=== PATIENT | female | born 1945 | race Caucasian/White ===

== ENCOUNTER 2023-10-05 09:23 | Inpatient (IN) ==
--- NOTE | 2023-09-12 12:44 | PAT Medication Instructions ---
Medication Instructions Date of Service September 12, 2023 Home Medications Medication Instructions Recorded celecoxib 200 mg capsule (Celebrex) 200 mg PO BID #28 caps 08/08/23 oxycodone 5 mg tablet 5 mg PO Q6H PRN pain #20 tabs 08/14/23 tramadol 50 mg tablet 50 mg PO Q6H PRN pain, moderate 08/14/23 #20 tabs atorvastatin 20 mg tablet 20 mg PO HS azelastine 137 mcg (0.1 %) nasal spray aerosol 1 spray intranasal UD PRN calcium 1 tab PO HS cetirizine 10 mg tablet (Zyrtec) 10 mg PO QAM escitalopram oxalate 20 mg tablet 20 mg PO QPM eszopiclone 2 mg tablet 1 - 2 mg PO HS PRN gabapentin 300 mg capsule 300 - 600 mg PO USEASDIRECTD glimepiride 4 mg tablet 4 mg PO UD PRN levothyroxine 88 mcg tablet 88 mcg PO QAM losartan 50 mg tablet 50 mg PO HS montelukast 10 mg tablet 10 mg PO UD PRN pantoprazole 40 mg tablet,delayed release 40 mg PO Q2D semaglutide 0.25 mg or 0.5 mg (2 mg/3 mL) subcutaneous pen injector (Ozempic) 0.5 mg subcut Q7D Advil 1 tab PO DIRECTED PRN multivitamin 1 tab PO DAILY celecoxib 200 mg capsule (Celebrex) 200 mg PO BID oxycodone 5 mg tablet 5 mg PO Q6H PRN tramadol 50 mg tablet 50 mg PO Q6H PRN cholecalciferol (vitamin D3) 25 mcg (1,000 unit) chewable tablet (Vitamin D3) 25 mcg PO DAILY ferrous sulfate 325 mg (65 mg iron) tablet (Iron (ferrous sulfate)) 325 mg PO DAILY STOP 7 days before surgery semaglutide 0.25 mg or 0.5 mg (2 mg/3 mL) subcutaneous pen injector (Ozempic) 0.5 mg subcut Q7D Continue as directed pantoprazole 40 mg tablet,delayed release 40 mg PO Q2D gabapentin 300 mg capsule 300 - 600 mg PO USE DIRECTED azelastine 137 mcg (0.1 %) nasal spray aerosol 1 spray intranasal UD PRN(if needed) montelukast 10 mg tablet 10 mg PO UD PRN(if needed) ASK your surgeon for instructions Advil 1 tab PO DIRECTED PRN celecoxib 200 mg capsule (Celebrex) 200 mg PO BID DO NOT take the morning of surgery cetirizine 10 mg tablet (Zyrtec) 10 mg PO QAM glimepiride 4 mg tablet 4 mg PO UD PRN multivitamin 1 tab PO DAILY cholecalciferol (vitamin D3) 25 mcg (1,000 unit) chewable tablet (Vitamin D3) 25 mcg PO DAILY ferrous sulfate 325 mg (65 mg iron) tablet (Iron (ferrous sulfate)) 325 mg PO DAILY Take morning of surgery With a small sip of water, OTHERWISE NOTHING TO EAT OR DRINK AFTER MIDNIGHT: levothyroxine 88 mcg tablet 88 mcg PO QAM oxycodone 5 mg tablet 5 mg PO Q6H PRN(if needed) tramadol 50 mg tablet 50 mg PO Q6H PRN(if needed) Take evening before surgery atorvastatin 20 mg tablet 20 mg PO HS calcium 1 tab PO HS escitalopram oxalate 20 mg tablet 20 mg PO QPM eszopiclone 2 mg tablet 1 - 2 mg PO HS PRN(if needed) oxycodone 5 mg tablet 5 mg PO Q6H PRN(if needed) tramadol 50 mg tablet 50 mg PO Q6H PRN(if needed) losartan 50 mg tablet 50 mg PO HS Other Notes If you have any questions please call us at [phone] or [phone] or [phone] or [phone]
--- NOTE | 2023-09-19 13:52 | Anesthesiology Consultation ---
Date of Service September 19, 2023 Assessment & Plan (1) Encounter for pre-operative examination: Chart Review Chart Review: Acceptable Risk for Surgery and Patient seen in Pre Admission Testing - Check BSG AM DOS Patient with hx of lumbar fusion and spinal cord stimulator (spinal cord stimulator replaced 08/14/23)- would still like SAB if possible - Patient is NOT an OPJ candidate (currently SDA) - Ozempic instructions: Patient takes on (Wednesdays). Patient informed at PAT visit to stop 7 days prior to surgery- voiced understanding. Last dose of Ozempic scheduled 09/26/23- will be off Ozempic x 9 days by DOS on 10/05/23. Per PAT appt on 09/19/23, no recent illness/disease exposures, illness related symptoms, or recent illness/disease positive tests. Will leave to surgeon's discretion if preop Covid testing needed Spinal cord stimulator removal and replacement 08/14/23= done under [facility] with Grade 2 view with Dailey #2. ETT #7.0 - PCP visit (08/03/23): "Type of Surgery: Spinal cord stimulator removal and replacement.. Patient is low medical risk for the listed procedure.. They are able to walk up a flight of stairs, walk two blocks at a moderate pace, do heavy house work like vacuuming, and grocery shop. The patient's functional status is good (greater than 4 METS)." Teaching & Discussion Pre-Anesthesia Teaching/Discussion Notes: Instructed NPO after midnight before surgery,except medications with 15 cc of water. Medication instructions provided according to the PAT guidelines. History Surgery Operation Date: 10/05/23 11:05 Proposed Procedures p Left Revision Unicompartment Knee Arthroplasty to Left Total Knee Arthroplasty - Italo Armstrong, Height/Weight Height: 5 ft 3 in Weight: 79.8 kg Allergies Allergy/AdvReac Type Severity Reaction Status Date / Time grass pollen Allergy Headache Verified 09/07/23 15:07 mold Allergy Headache, Verified 09/07/23 15:07 runny nose, scratchy throat Sulfa (Sulfonamide Allergy Rash Verified 09/07/23 15:07 Antibiotics) tree and shrub pollen Allergy Headache, Verified 09/07/23 15:07 runny nose, scratchy throat Medications Home Medications Medication Instructions Recorded Confirmed Last Taken atorvastatin 20 mg tablet 20 mg PO HS 07/23/23 09/07/23 08/13/23 22:30 azelastine 137 mcg (0.1 %) nasal 1 spray intranasal UD PRN 07/23/23 09/07/23 08/13/23 22:30 spray aerosol Congestion calcium 1 tab PO HS 07/23/23 09/07/23 08/13/23 09:30 cetirizine 10 mg tablet (Zyrtec) 10 mg PO QAM 07/23/23 09/07/23 08/13/23 09:30 escitalopram oxalate 20 mg tablet 20 mg PO QPM 07/23/23 09/07/23 08/13/23 22:30 eszopiclone 2 mg tablet 1 - 2 mg PO HS PRN Sleep 07/23/23 09/07/23 08/13/23 22:30 gabapentin 300 mg capsule 300 - 600 mg PO USEASDIRECTD 07/23/23 09/07/23 08/13/23 22:30 glimepiride 4 mg tablet 4 mg PO UD PRN w/steroid 07/23/23 09/07/23 Unknown injections for knees levothyroxine 88 mcg tablet 88 mcg PO QAM 07/23/23 09/07/23 08/14/23 09:00 losartan 50 mg tablet 50 mg PO HS 07/23/23 09/07/23 08/13/23 22:30 montelukast 10 mg tablet 10 mg PO UD PRN Allergy Symptoms 07/23/23 09/07/23 08/13/23 14:00 pantoprazole 40 mg tablet,delayed 40 mg PO Q2D 07/23/23 09/07/23 08/12/23 09:00 release semaglutide 0.25 mg or 0.5 mg (2 0.5 mg subcut Q7D 07/23/23 09/07/23 08/03/23 mg/3 mL) subcutaneous pen injector (Ozempic) multivitamin 1 tab PO DAILY 08/01/23 09/07/23 08/13/23 09:30 celecoxib 200 mg capsule (Celebrex) 200 mg PO BID #28 caps 08/08/23 09/07/23 Unknown cholecalciferol (vitamin D3) 25 25 mcg PO DAILY 09/07/23 09/07/23 Unknown mcg (1,000 unit) chewable tablet (Vitamin D3) ferrous sulfate 325 mg (65 mg 325 mg PO DAILY 09/07/23 09/07/23 Unknown iron) tablet (Iron (ferrous sulfate)) Past Medical History Medical History Depression Diabetes mellitus, type 2 GERD (gastroesophageal reflux disease) Well controlled and stable HX: breast cancer Left breast, Dx 2010, s/p left breast lumpectomy/XRT/chemo (4 rounds) no limb restriction Hyperlipidemia Hypertension Hypothyroidism Insomnia Seasonal allergies Spinal cord neurostimulator device in situ Patient aware to bring remote DOS Exercise / Class Metabolic Activity III < 4 Walking/Shop/Light housework (no chest pain or SOB with flat surface ambulation - uses cane for ambulation ) Past Surgical History Surgical History History of esophagogastroduodenoscopy (EGD) History of lumbar fusion L4-5 History of lumpectomy of left breast History of partial knee replacement R/L ~2013 History of right hip replacement History of total left hip replacement with revision Hx of section Hx of cholecystectomy Hx of colonoscopy Hx of lumbosacral spine surgery 2012 Hx of surgical procedure #1 revision laminotomies T8, T9 and T10. #2 removal of spinal cord stimulator paddle and battery. #3 placement of [employer] 32-lead spinal cord stimulator paddle across T8 and T9 with rechargeable battery. Hx of tonsillectomy S/P placement of nerve stimulator x2; Advised to bring remote DOS [place] teeth extracted Past Anesthesia History No Hx of Anesthesia Complications and No Family Hx of Anesthesia Complications History of PONV No Hx of PONV and No Hx of Motion Sickness Social History Smoking Status: Never smoker Do You Dip or Chew Tobacco: No Hx Alcohol Use: Yes Alcohol type: wine alcohol intake frequency: a few times a month Hx Substance Use: No substance use type: does not use Review of Systems - Hx of blood transfusion - s/p surgery Apr 2022 Patient denies chest pain, shortness of breath, dyspnea on exertion, cough, wheezing, palpitations. No hx of seizures, stroke, ID, apnea/snoring. No hx of blood clots Physical Exam Vital Signs VITALS BP 125/72 P 83 TEMP 98.2 SP02 97% RESP 16 Constitutional no acute distress ENMT Mouth: no TMJ clicking Thyromental Distance: > or= 3.5 Finger Breadths (3.5) Mallampati Class: I Crowns to molars Neck neck extension not limited Respiratory normal respiratory effort; no respiratory distress Auscultation: lungs clear to auscultation bilaterally; no wheezes Cardiovascular Rate/Rhythm: regular rate and regular rhythm Heart Sounds: no murmur Vessels: no carotid bruit Musculoskeletal Spine: no pain with cervical ROM Extremities: extremities normal to inspection Psychiatric Orientation: alert Lab Results Anesthesia Preop Results Results Anesthesia Widget: WBC 10.52 K/ul (4.8-10.8) 09/19/23 Hgb 13.5 g/dl (12.0-16.0) 09/19/23 Hct 40.4 % (37.0-47.0) 09/19/23 Plt 209 K/uL (130-400) 09/19/23 Na 135 mmol/L (136-145) L 09/19/23 K 3.8 mmol/L (3.5-5.1) 09/19/23 Cl 104 mmol/L (98-107) 09/19/23 CO2 25 mmol/L (21-32) 09/19/23 BUN 23 mg/dl (6-23) 09/19/23 Creat 0.59 mg/dl (0.6-1.2) L 09/19/23 Glucose Level 92 mg/dl (70-99(Fasting)) 09/19/23 PT 10.9 Seconds (9.0-12.0) 09/19/23 PTT 27 Seconds (21-31) 09/19/23 INR 1.0 (0.9-1.1) 09/19/23 HA1c 6.5 % (4.5-5.6) H 09/19/23 Blood Type A Positive 09/19/23 Antibody Screen NEGATIVE 09/19/23 Testing Electrocardiogram Date: 08/01/23 Findings: + NSR @ (89bpm) Left axis deviation Low voltage QRS Possible inferior infarct (PCP reviewed preop EKG prior to spinal cord stimulator removal and replacement on 08/14/23- "PCP note/EKG response (08/07/23): "On my review of the EKG I do not see evidence of an inferior infarct and patient is asymptomatic.. I feel she is appropriate risk." Patient tolerated procedure without issues under [facility]) Chest X-Ray Date: 08/01/23 FINDINGS: Intracanalicular electrodes are incidentally noted. There are right upper quadrant surgical clips. Surgical clips project over the left chest. There is no pneumothorax or pleural effusion. No consolidation is present. There is no evidence for pulmonary edema. There is a small hiatal hernia. Cardiac size is within normal limits. IMPRESSION: No acute cardiopulmonary findings.
--- NOTE | 2023-10-03 12:44 | History & Physical Report ---
Date of Service October 03, 2023 Assessment & Plan (1) Osteoarthritis of left knee: We will proceed with a removal of the unicompartmental knee arthroplasty and conversion to standard knee replacement. Postoperatively she will be started on aspirin for DVT prophylaxis and kept overnight in the hospital for postop medical management. She plans to use energy physical therapy upon discharge. History of Present Illness Chief Complaint: Osteoarthritis of the left knee. Primary Care Provider: Lois Gee DO Nancy is a pleasant 78-year-old female who has been dealing with bilateral knee pain and left shoulder pain. She underwent partial knee replacements in [place] about 11 years ago. She did well until recently. Her knees have been bothering her a lot more. She is having trouble walking long distances. She uses a cane to ambulate. X-rays and clinical examination been diagnostic for worsening osteoarthritis of her knees. After failing conservative treatment, she has elected proceed with a left total knee arthroplasty. Allergies Allergy/AdvReac Type Severity Reaction Status Date / Time grass pollen Allergy Headache Verified 09/07/23 15:07 mold Allergy Headache, Verified 09/07/23 15:07 runny nose, scratchy throat Sulfa (Sulfonamide Allergy Rash Verified 09/07/23 15:07 Antibiotics) tree and shrub pollen Allergy Headache, Verified 09/07/23 15:07 runny nose, scratchy throat Home Medications Medication Instructions Recorded Confirmed Type atorvastatin 20 mg tablet 20 mg PO HS 07/23/23 09/07/23 History azelastine 137 mcg (0.1 %) nasal 1 spray intranasal UD PRN 07/23/23 09/07/23 History spray Congestion calcium 1 tab PO HS 07/23/23 09/07/23 History cetirizine 10 mg tablet (Zyrtec) 10 mg PO QAM 07/23/23 09/07/23 History escitalopram oxalate 20 mg tablet 20 mg PO QPM 07/23/23 09/07/23 History eszopiclone 2 mg tablet 1 - 2 mg PO HS PRN Sleep 07/23/23 09/07/23 History gabapentin 300 mg capsule 300 - 600 mg PO USEASDIRECTD 07/23/23 09/07/23 History glimepiride 4 mg tablet 4 mg PO UD PRN w/steroid 07/23/23 09/07/23 History injections for knees levothyroxine 88 mcg tablet 88 mcg PO QAM 07/23/23 09/07/23 History montelukast 10 mg tablet 10 mg PO UD PRN Allergy Symptoms 07/23/23 09/07/23 History pantoprazole 40 mg tablet,delayed 40 mg PO Q2D 07/23/23 09/07/23 History release semaglutide 0.25 mg or 0.5 mg (2 0.5 mg subcut Q7D 07/23/23 09/07/23 History mg/3 mL) subcutaneous pen injector (Ozempic) multivitamin 1 tab PO DAILY 08/01/23 09/07/23 History celecoxib 200 mg capsule (Celebrex) 200 mg PO BID #28 caps 08/08/23 09/07/23 Rx cholecalciferol (vitamin D3) 25 25 mcg PO DAILY 09/07/23 09/07/23 History mcg (1,000 unit) chewable tablet (Vitamin D3) ferrous sulfate 325 mg (65 mg 325 mg PO DAILY 09/07/23 09/07/23 History iron) tablet (Iron (ferrous sulfate)) losartan 25 mg tablet 25 mg PO HS 09/28/23 09/28/23 History Past Med/Surg History Problem List Encounter for pre-operative examination Postlaminectomy syndrome of lumbar region Disc degeneration, lumbar Spinal cord stimulator dysfunction Low back pain History of right hip replacement Osteoarthritis Medical History Spinal cord neurostimulator device in situ Patient aware to bring remote DOS HX: breast cancer Left breast, Dx 2010, s/p left breast lumpectomy/XRT/chemo (4 rounds) no limb restriction Seasonal allergies Depression GERD (gastroesophageal reflux disease) Well controlled and stable Insomnia Hypertension Hyperlipidemia Hypothyroidism Diabetes mellitus, type 2 Surgical History History of right hip replacement History of lumbar fusion L4-5 Hx of surgical procedure #1 revision laminotomies T8, T9 and T10. #2 removal of spinal cord stimulator paddle and battery. #3 placement of [employer] 32-lead spinal cord stimulator paddle across T8 and T9 with rechargeable battery. S/P placement of nerve stimulator x2; Advised to bring remote DOS History of partial knee replacement R/L ~2013 Hx of lumbosacral spine surgery 2012 Hx of cholecystectomy History of esophagogastroduodenoscopy (EGD) Hx of colonoscopy Hx of section History of lumpectomy of left breast [place] teeth extracted Hx of tonsillectomy History of total left hip replacement with revision Social History Smoking Status: Never smoker Second Hand Exposure: No; Do You Dip or Chew Tobacco: No; Tobacco Cessation Education Requested by Patient: No Hx Alcohol Use: Yes Alcohol type: wine Hx Substance Use: No Preferred Language: Gabonese Communication Ability: Effective Clinical Systems Educator Required: No Beliefs That Will Affect Care: None marital status: Current Living Situation: Spouse current occupational status: retired Other Information That Helps Us Care for You: No Feels Safe at Home: Yes Safety Concerns: Feels Safe At This Time Assistive Devices: Cane, Glasses and Hearing Aid - Bilateral Review of Systems All systems reviewed & are unremarkable except as noted in HPI & below. Physical Exam On physical examination left knee, she has decreased range of motion from 5 to 115 degrees. No instability. Pain of the distal lateral femoral condyle and in the patellofemoral joint.. Constitutional WD/WN, vitals as above Eyes PERRL, conjunctivae normal, anicteric sclerae ENMT external ear and nose normal, oropharynx normal Neck trachea midline, no thyromegaly Respiratory normal respiratory effort Cardiovascular RRR, no murmur, no edema Gastrointestinal (Abdomen) normal bowel sounds, soft, nontender, no hepatosplenomegaly Psychiatric A+Ox3, euthymic affect Results & Data Results & Data Laboratory Results . Diagnostic Findings . PG Care Time/CCT Total # of Minutes Spent Total Time Spent with Patient: Total time spent is greater than 50% in coordination of care (as documented) at patient's floor/unit and/or counseling patient: Coding Level of Care Code None Diagnoses Osteoarthritis of left knee M17.12
[~2023-10-05 09:23] MED LIST: BUPIVACAINE 0.5 % 5 MG/1 ML PF 10ML VIAL ONE; ROPIVACAINE 0.5% 5 MG/ML 30 ML VIAL ONE
--- NOTE | 2023-10-05 10:05 | History & Physical Bridge Note ---
Date of Service October 05, 2023 History & Physical Bridge Note I have examined the patient, reviewed the History & Physical and in the interval since the performance of the History & Physical I have noted the following changes of clinical significance: no changes noted
[2023-10-05] MEDS: LR 500ML BOLUS, THEN 15ML/HR IV SCH (10:06)
[2023-10-05] MEDS: LR 60ML/HR IV SCH (10:06)
[2023-10-05] MEDS: ACETAMINOPHEN 500 MG TAB PO SCH ×2 (10:08→16:27)
[2023-10-05] MEDS: dexAMETHasone**PF** 10 MG/ML VIAL IV SCH (10:08)
[2023-10-05] MEDS: FAMOTIDINE 20 MG TAB PO SCH (10:08)
[2023-10-05] MEDS: GABAPENTIN 300 MG CAP PO SCH ×2 (10:08→20:10)
[2023-10-05] MEDS ORDERED: fentaNYL citrate PF 100 MCG/2 ML VIAL ONE (10:14)
[2023-10-05] MEDS ORDERED: ONDANSETRON INJ 2 MG/ML 2 ML VIAL ONE (10:42)
[2023-10-05] MEDS ORDERED: PROPOFOL IV EMULSION 10 MG/ML 20 ML VIAL IV ONE (10:42)
[2023-10-05] MEDS ORDERED: diphenhydrAMINE 50 MG/ML VIAL ONE (10:42)
[2023-10-05] MEDS ORDERED: LIDOCAINE 2% 2 ML VIAL/AMP(20MG/ML) INFIL ONE (10:42)
[2023-10-05] MEDS ORDERED: GLYCOPYRROLATE 0.2 MG/ML VIAL ONE ×2 (10:42→11:28)
[2023-10-05] MEDS ORDERED: ONDANSETRON INJ 2 MG/ML 2 ML VIAL IV PRN ×2 (10:46→15:38)
[2023-10-05] MEDS ORDERED: ePHEDrine sulfate 50 MG/ML AMP IV PRN (10:46)
[2023-10-05] MEDS ORDERED: fentaNYL citrate PF 100 MCG/2 ML VIAL IV PRN (10:46)
[2023-10-05] MEDS ORDERED: ATROPINE SULFATE 0.1 MG/ML 10ML SYR IV PRN (10:46)
[2023-10-05] MEDS: TRANEXAMIC ACID 1,000 MG **IV Pre-op IV SCH (10:57)
[2023-10-05] MEDS: ceFAZolin 2000MG 2,000 MG/15 ML SYR IV SCH ×2 (11:04→20:04)
[2023-10-05] MEDS ORDERED: ePHEDrine sulfate 50 MG/ML AMP ONE (11:24)
[2023-10-05] MEDS ORDERED: HYDROmorphone INJ 2 MG/ML SYR/VIAL ONE (11:34)
[2023-10-05] MEDS: ORTHO JOINT ANESTHETIC ONE (11:47)
[2023-10-05] MEDS: ROPIV 0.5% 246mg, Ketorolac 30mg, EPINEPHrine 0.5mg in NSS INFIL SCH (12:40)
[2023-10-05] MEDS ORDERED: PHENYLEPHRINE 100MCG/ML 10ML SYR IV ONE (12:41)
[2023-10-05] MEDS: TRANEXAMIC ACID 1,000 MG **IV Intra-op IV SCH (13:01)
--- NOTE | 2023-10-05 14:25 | XRay Report ---
TWO VIEWS LEFT KNEE CLINICAL HISTORY: Postoperative examination. FINDINGS: AP and crosstable lateral portable views of the left knee are obtained. A left knee arthrop lasty is in near anatomic alignment. There is a long tibial stem. There has been undersurface remodel ing of the patella. No acute fracture is seen. There are expected postoperative changes around the kn ee including skin clips, soft tissue edema, and subcutaneous gas. IMPRESSION: Expected postoperative changes status post left knee arthroplasty. No acute fracture is s een. ACT 112: Negative or not required by law. Electronically signed by: Andrae Regan M.D. 10/05/2023 2:23 PM
--- NOTE | 2023-10-05 14:43 | Anesthesiology Progress Note ---
Date of Service October 05, 2023 Anesthesia Post Procedure Vital Signs Vital Signs: Temp Pulse Resp BP Pulse Ox O2 Del Method O2 Flow Rate 10/05/23 14:30 97.5 F L 92 H 19 125/71 96 Nasal Cannula 2 10/05/23 14:20 98 H 14 139/75 94 Nasal Cannula 2 10/05/23 14:10 108 H 15 132/92 95 Nasal Cannula 2 10/05/23 14:00 99 H 16 130/71 100 Oxymask 10 10/05/23 13:50 102 H 17 155/82 H 98 Oxymask 10 10/05/23 13:40 109 H 13 159/108 H 93 Oxymask 10 10/05/23 13:34 98.8 F 111 H 15 156/86 H 95 Oxymask 10 10/05/23 09:54 98.1 F 91 H 20 116/78 95 Room Air Pain Intensity Generalized: Pain Intensity: 5 Left Knee: Pain Intensity: 2 Transfer of Care Handoff Completed per policy Notes Mental Status: alert / awake / arousable and participated in evaluation Patient Amnestic to Procedure: Yes Nausea / Vomiting: adequately controlled Pain: adequately controlled Airway Patency, RR, SpO2: stable & adequate BP & HR: stable & adequate Hydration State: stable & adequate Anesthetic Complications: no major complications apparent and Pt Satisfied with anesthetic care
--- NOTE | 2023-10-05 14:54 | Operative Report ---
PG Post Operative Report Pre & Post Diagnosis Operation Date: 10/05/23 11:00 Pre-Op Diagnosis: Osteoarthritis of left knee with implanted unicompartmental knee arthroplasty Post-Op Diagnosis: Osteoarthritis of left knee with implanted unicompartmental knee arthroplasty I identified the patient and participated in the time-out.: Yes Procedure Operation Date: 10/05/23 11:00 Actual Procedures p Left Revision Unicompartment Knee Arthroplasty to Left Total Knee Arthroplasty(Left) - Italo Armstrong DO Surgeon Italo Armstrong DO Junior Manufacturing Engineer Italo Paez PA-C Estimated Blood Loss 30 Findings Consistent with Post-Op Diagnosis Specimens Left femoral tibial bone Description of Procedure Implants used: I used a [employer] PRK arthroplasty system with a size 7 femur with a 30 mm stem extension, D tibia with a 135 x 11 mm stem extension, 34 oval patella, and a size 14 CCK polyethylene bearing. All components were cemented in place with Biomet cement. Nancy arrived [facility] for the above procedure. She was seen in the preoperative holding area and the operative extremity was identified and signed. She was given a preoperative antibiotic, TXA, a spinal anesthetic and an adductor nerve block. She was taken back to the operating room and laid on the table in supine position. She was given basic sedation. The operative knee was then prepped and draped in sterile fashion. A timeout was done, and the patient and the operative extremity was properly identified. A midline incision was made directly over the patella. Dissection was taken down to the extensor mechanism. A subvastus arthrotomy was used. The medial retinaculum was released and the fat pad was mostly excised. The knee was flexed and the ACL, PCL, and meniscus were removed. A drill was sent down the center of the femoral canal and the intramedullary jeferson was placed.. Off that jeferson a distal femoral cutting block was placed. 9 mm was resected off the distal femur at 5 of valgus. I was able to resect the femoral component of the unicompartmental knee arthroplasty. There was about 5 mm of bone loss off the distal medial femoral condyle. A posterior referencing AP sizing guide was then placed on the distal femur. The femur measured to be a size 7. Sequential reaming up to a size 14 reamer was done on the femoral canal. A 4-in-1 cutting block was locked into place. Anterior posterior and chamfer cuts were then made. A femoral component was then placed and the box was cut for the CCK stability. The distal medial femoral condyle was also resected for the 5 mm augment on the medial side. The proximal tibia was then exposed. Time was spent removing the tibial implant. Once the tibial implant was removed there was about 5 mm of bone loss off the medial side. Sequential reaming of the tibia up to a size 11 mm reamer was done. A size D tibia seem to be the best fit. A 6 mm offset was used. The offset was then drilled. The final size D tibia with medial and lateral 5 mm augments and an 11 mm stem was then trialed in place. A femoral component was trialed. A 14 mm CCK bearing w as then trialed. The knee was brought through full range of motion and felt to be stable. All trial components were then removed. The components were then assembled on the back table. The final femoral and tibial components were then cemented in place with Biomet cement. Once cement had hardened the final size 14 mm CCK polyethylene insert was then snapped into place and the screw was tightened. The knee was brought through full range of motion and felt to be stable. The surrounding soft tissues were injected with 100 cc of an orthopedic pain control cocktail. Once cement was dry the tourniquet was deflated. Hemostasis was obtained. A dilute betadyne lavage was then done for 3 minutes. The joint was then irrigated with normal saline solution. The subvastus arthrotomy was then closed with #1 Vicryl suture. The skin was closed with 2-0 Vicryl, 3-0V lock suture, and nika. A soft compressive dressing was placed. She was then transferred to a hospital bed and taken to the postanesthesia care unit in stable condition. She tolerated the procedure well. Italo Paez PA-C, was present for the entire procedure. He was critical for patient positioning, prepping, draping, retraction exposure, wound closure and application of sterile dressing. I attest to the content of the Intraoperative Record and any orders documented therein. Any exceptions are noted below.
[2023-10-05] MEDS ORDERED: METOCLOPRAMIDE HCL INJ 5 MG/ML 2 ML VIAL IV PRN (15:38)
[2023-10-05] MEDS ORDERED: MAGNESIUM HYDROXIDE SUSP 30 ML UDC PO PRN (15:38)
[2023-10-05] MEDS ORDERED: bisacodyL 10 MG SUPP PR PRN (15:38)
[2023-10-05] MEDS ORDERED: AZELASTINE HCL 0.1% NASAL 200 SPRAYS/27,400 MCG BTL PRN (15:38)
[2023-10-05] MEDS ORDERED: HYDROmorphone INJ 0.5 MG/0.5 ML SYR IV PRN (15:38)
[2023-10-05] MEDS ORDERED: NALOXONE HCL 0.4 MG/1 ML VIAL/CARP IV PRN (15:38)
[2023-10-05] MEDS: SODIUM CHLORIDE 0.9% 1,000 ML IV SCH (16:10)
[2023-10-05] MEDS: KETOROLAC TROMETHAMINE 15 MG/ML VIAL IV SCH (16:27)
[2023-10-05] MEDS: DOCUSATE SODIUM 100 MG CAP PO SCH (20:07)
[2023-10-05] MEDS: ASPIRIN 81 MG ECTAB PO SCH (20:07)
[2023-10-05] MEDS: ATORVASTATIN 20 MG TAB PO SCH (20:08)
[2023-10-05] MEDS: ESCITALOPRAM OXALATE 20 MG TAB PO SCH (20:08)
[2023-10-05] MEDS: LOSARTAN POTASSIUM 25 MG TAB PO SCH (20:08)
[2023-10-05] MEDS: SENNA 8.6 MG TAB PO SCH (20:09)
[2023-10-05] MEDS ORDERED: ESZOPICLONE 1 MG TAB PO PRN (21:00)
[2023-10-05] MEDS: oxyCODONE HCL IR 5 MG TAB (IMMEDIATE RELEASE) PO PRN (22:49)
[2023-10-06] MEDS: LEVOTHYROXINE SODIUM 88 MCG TABLET PO SCH (05:34)
--- NOTE | 2023-10-06 07:15 | Orthopedic Progress Note ---
Date of Service October 06, 2023 Assessment & Plan (1) Status post revision of total replacement of left knee: Overall she is doing fairly well. She is not having much pain in the left hip. She will be seen by physical therapy today for ambulation and range of motion exercises. She is on aspirin for DVT prophylaxis. Because she has Medicare insurance she has to stay 2 midnights so we will keep her overnight tonight and send her home tomorrow. Alyson Bella was seen and examined at bedside this morning. Overall she is doing fairly well. She is not having much pain in the left knee. She has been up and ambulating to the bathroom. She has no complaints.. Review of Systems All systems reviewed & are unremarkable except as noted in HPI & below. Physical Exam On physical examination left knee, the dressing is clean and dry. Her leg is out full extension. She has active dorsiflexion plantarflexion of her left ankle.. Results & Data Results & Data Laboratory Results . Diagnostic Findings Postoperative x-rays of the left knee show the prosthesis to be in anatomic alignment without any evidence of fracture, his cage, or loosening.. PG Care Time/CCT Total # of Minutes Spent Total Time Spent with Patient: Total time spent is greater than 50% in coordination of care (as documented) at patient's floor/unit and/or counseling patient: Coding Level of Care Code 00769 Post Operative Follow-Up Diagnoses Status post revision of total replacement of left knee Z96.652
[2023-10-06] MEDS: MULTIVITAMIN TAB PO SCH (07:55)
[2023-10-06] MEDS: MONTELUKAST SODIUM 10 MG TABLET PO PRN (07:55)
[2023-10-06] MEDS: GABAPENTIN 300 MG CAP PO SCH (07:55)
[2023-10-06] MEDS: dexAMETHasone 4 MG TAB PO SCH (07:55)
[2023-10-06] MEDS: CETIRIZINE HCL 10 MG TABLET PO SCH (07:55)
[2023-10-06] MEDS: PANTOprazole 40 MG TAB PO SCH (08:13)
[2023-10-06] MEDS: DICLOFENAC SOD 1% GEL 100 GM TUBE EXT PRN (08:13)
--- NOTE | 2023-10-07 08:29 | Orthopedic Progress Note ---
Date of Service October 07, 2023 Assessment & Plan (1) Status post revision of total replacement of left knee: Overall she is doing okay. She is not having too much pain in the left knee. She will be seen by physical therapy today for ambulation and range of motion exercises. She is on aspirin for DVT prophylaxis. She can be discharged home later today. She will follow-up with orthopedics in 2 weeks. Alyson Cruz was seen and examined at bedside this morning. Overall she is doing well. She is having some soreness in the left knee but is not too bad. She participated well yesterday with physical therapy. She is no complaints.. Review of Systems All systems reviewed & are unremarkable except as noted in HPI & below. Physical Exam On physical examination left knee, her leg is out full extension. The dressing has been changed. She has active dorsiflexion plantarflexion of her left ankle.. Results & Data Results & Data Laboratory Results . PG Care Time/CCT Total # of Minutes Spent Total Time Spent with Patient: Total time spent is greater than 50% in coordination of care (as documented) at patient's floor/unit and/or counseling patient: Coding Level of Care Code 22395 Post Operative Follow-Up Diagnoses Status post revision of total replacement of left knee Z96.652
--- NOTE | 2023-10-07 08:30 | Discharge Summary ---
Date of Service October 07, 2023 Admission HPI (Per Admitting) Nancy is a pleasant 78-year-old female who has been dealing with bilateral knee pain and left shoulder pain. She underwent partial knee replacements in [place] about 11 years ago. She did well until recently. Her knees have been bothering her a lot more. She is having trouble walking long distances. She uses a cane to ambulate. X-rays and clinical examination been diagnostic for worsening osteoarthritis of her knees. After failing conservative treatment, she has elected proceed with a left total knee arthroplasty. Admission Exam (Per Admitting) On physical examination left knee, she has decreased range of motion from 5 to 115 degrees. No instability. Pain of the distal lateral femoral condyle and in the patellofemoral joint.. Principal Diagnosis Same as "Discharge Diagnosis" noted below under Discharge Instructions. Discharge Exam On physical examination left knee, her leg is out full extension. The dressing has been changed. She has active dorsiflexion plantarflexion of her left ankle.. Discharge Data Procedures Performed Operation Date: 10/05/23 11:00 Actual Procedures p Left Revision Unicompartment Knee Arthroplasty to Left Total Knee Arthroplasty(Left) - Italo Armstrong DO Ordered Studies 10/05/23 05:00 US - OR guided needle placemen Routine Hospital Course (1) Status post revision of total replacement of left knee: On October 05, 2023 Nancy arrived at [facility] and underwent a revision left knee replacement without complication. She had a spinal anesthetic. Postoperatively she was started on aspirin for DVT prophylaxis and transferred to the general orthopedic floors. Her hospital course was uneventful. On postop day #1, her vital signs were stable and her pain was well-controlled. She was able to participate well with physical therapy doing ambulation and range of motion exercises. On postop day #2, she continued to do well. Her pain was controlled and her vital signs are stable. She participated well once again with physical therapy. She was then discharged home. She will follow-up with orthopedics in 2 weeks. PG Care Time/CCT Total # of Minutes Spent Total Time Spent with Patient: Total time spent is greater than 50% in coordination of care (as documented) at patient's floor/unit and/or counseling patient: Discharge Plan Discharge Items Patient Disposition: Home - Self-Care Reason For Visit: Painful Unicompartment Knee Arthroplasty, Advanced Discharge Diagnosis: Revision left knee replacement Activity: Per Instructions section Non-emergency contact: Surgeon Call non-emergency contact if: your wound has increased redness and your wound has increased drainage Follow-up/Referrals: Lois Gee DO [Primary Care Provider] - Diet: Regular Addtl Attending Provider Instructions: Activity and Therapy Recommendations: * If you are using [facility] then therapy will be provided at your home until they feel you have accomplished all of your goals. * If you are using [facility] then Physical Therapy will be provided until they feel you are ready to start Outpatient Physical Therapy. * If you are not using home therapy then Outpatient Physical Therapy should start about 3-5 days from your day of surgery. Therapy will last about 6-10 weeks * It is important not to put a pillow under your knee when you are relaxing or sleeping. It is just as important to make sure you are getting your knee perfectly straight as it is to regain your knee bend. * You were shown a series of exercises in the hospital. Do these exercises three times each day including the exercises you were shown in physical therapy. * Get up and walk several times each day. For the first four weeks, try not to stand or walk for more than one hour at a time. If you do stand or walk for more than one hour, you will not hurt anything, but your leg will likely swell. * As you feel comfortable, you may change from the walker or crutches to a cane and then to independent walking. Medications: * Narcotic You will likely be sent home from the hospital with a prescription for the narcotic pain medication that worked best throughout your stay. * Cefadroxil -take the antibiotic twice a day for 10 days to help prevent infection. * Aspirin Most patients will be required to take Aspirin 81mg twice a day for 6 weeks after surgery. This is obtained [id number] and a prescription is not necessary. * Other medications may be prescribed for specific circumstances. If you have any questions, please call the office at . * Resume previous home medications unless otherwise instructed TEDs/Elastic Stockings: The white elastic stockings help limit swelling and prevent blood clots from forming in your legs.~ The more you wear them, the more they work. Wear them for six weeks. Dressing Care: The dressing can be changed after physical therapy on postop day #1. Daily dry dressing changes for a few days, especially if the incision is still draining some. If the incision is not draining then you may leave the nika open to air. If there is a little bit of drainage or if the nika are getting stuck on your clothing then cover the incision with a dry dressing. The nika will be removed at your 2 week follow-up appointment. Showering: You may shower 5 days from the day of surgery as long as the incision is no longer draining. You may shower with the nika exposed. Let soapy water run over the nika and pat them dry. Do not scrub or soak the incision. Things To Watch For: * Drainage from the incision site that occurs more than one week after your surgery. * Increased redness at the incision site. * Fever above 102 degrees Fahrenheit. * Unusual chest pain or shortness of breath. * Call [facility] at with any of the above problems Follow-Up Visit: Follow-up with Dr. Armstrong's PA (Italo Paez) 2-3 weeks after your day of surgery. He will remove your nika and answer any questions. If you have any additional questions or concerns, Dr Armstrong is usually in the office at the same time and will be available An appointment was probably scheduled when you signed-up for surgery in the office. If you have any questions call Office Instructions: More detailed instructions as well as Frequently Asked Questions were provided in a folder by our office when you signed-up for surgery. Please review these instructions when you get home. If you have any further questions or concerns, please feel free to call the office at [phone] Pending Studies at Discharge: No Stand-Alone Forms: My [facility] Medications and DC Order Prescriptions: New oxycodone 5 mg Tablet 5 mg PO Q4H PRN (Reason: pain) Qty: 30 0RF aspirin 81 mg Tablet,Delayed Release (Dr/Ec) 81 mg PO BID 42 Days Qty: 84 0RF cefadroxil 500 mg capsule 500 mg PO BID 10 Days Qty: 20 0RF diclofenac sodium [Voltaren Arthritis Pain] 1 % gel 4 g topical QID Qty: 100 0RF Rx Instructions: apply to single knee, ankle, foot; for foot includes sole/toes/top of foot Continued celecoxib [Celebrex] 200 mg capsule 200 mg PO BID Qty: 28 0RF Patient Comments: finished with this 09/07/23 Rx Instructions: Take for two weeks after surgery atorvastatin 20 mg Tablet 20 mg PO HS cetirizine [Zyrtec] 10 mg Tablet 10 mg PO QAM levothyroxine 88 mcg tablet 88 mcg PO QAM pantoprazole 40 mg tablet,delayed release (DR/EC) 40 mg PO Q2D Rx Instructions: in the morning glimepiride 4 mg tablet 4 mg PO UD PRN (Reason: w/steroid injections for knees) gabapentin 300 mg capsule 300 - 600 mg PO USEASDIRECTD Rx Instructions: 300mg QAM and 600mg HS montelukast 10 mg tablet 10 mg PO UD PRN (Reason: Allergy Symptoms) azelastine 137 mcg (0.1 %) aerosol,spray 1 spray INTRANASAL UD PRN (Reason: Congestion) escitalopram oxalate 20 mg tablet 20 mg PO QPM eszopiclone 2 mg tablet 1 - 2 mg PO HS PRN (Reason: Sleep) Ozempic 0.25 mg or 0.5 mg (2 mg/3 mL) Pen Injector 0.5 mg SUBCUT Q7D Patient Comments: fridays last dose 09/28/23 calcium 1 tab PO HS multivitamin 1 tab PO DAILY ferrous sulfate [Iron (ferrous sulfate)] 325 mg (65 mg iron) Tablet 325 mg PO DAILY cholecalciferol (vitamin D3) [Vitamin D3] 25 mcg (1,000 unit) Tablet,Chewable 25 mcg PO DAILY losartan 25 mg Tablet 12.5 mg PO HS Discharge Orders: Discharge Order (Routine); Ordered 10/07/23 Ordered By: Italo Armstrong Admission Data Admit Date/Time: 10/05/23 13:29 Attending Provider: Italo Armstrong Admit Provider: Italo Armstrong Primary Care Provider: Lois Gee
== END 2023-10-07 11:23 | disposition home health service (06) | DRG 468 ==
LOC: ASU 09:23 → PACUINP 13:29 → 3E 16:10